=== PATIENT | male | born 1935 | race African-American/Black ===

== ENCOUNTER 2019-09-17 13:48 | Emergency (ER) | payer MEDICARE, OTHER ==
[~2019-09-17] VITALS: Ht 182.9 cm; Wt 81.6 kg
[2019-09-17 14:11] VITALS: BP 139/67
[2019-09-17] MEDS ORDERED: cefTRIAXone SOD 1,000 MG VL ONE (15:24)
[2019-09-17] MEDS ORDERED: cefTRIAXone SOD 1,000 MG VL IM ONE (15:30)
== END 2019-09-17 15:36 | disposition home or self-care (01) ==
LOC: ER 13:48
DX: K04.7 Periapical abscess without sinus (principal); I10 Essential (primary) hypertension
CPT/HCPCS: 96372; 99283; J0696

== ENCOUNTER 2021-04-04 10:27 | Emergency (ER) | payer MEDICARE, OTHER ==
[~2021-04-04] VITALS: Ht 180.3 cm; Wt 83.9 kg
[2021-04-04 12:07] VITALS: BP 120/75
== END 2021-04-04 12:47 | disposition home or self-care (01) ==
LOC: ER 10:27
DX: K22.4 Dyskinesia of esophagus (principal); I10 Essential (primary) hypertension; Z95.1 Presence of aortocoronary bypass graft
CPT/HCPCS: 70360